=== PATIENT | male | born 1965 | race Hispanic/Latino ===

== ENCOUNTER 2024-10-28 20:37 | Emergency (ER) | payer OTHER ==
[~2024-10-28] VITALS: Ht 167.6 cm; Wt 83.0 kg
[2024-10-28 21:30] VITALS: PULSE 90; RESP 18; TEMP 97.9
[2024-10-28] MEDS ORDERED: POLYMYXIN B-TMP10 ML OP (21:51)
[2024-10-28] MEDS ORDERED: CEPHALEXIN500 MG PO (21:52)
[2024-10-28 22:07] VITALS: BP 144/85; PULSE 90; RESP 18; TEMP 97.9; O2SAT 96
== END 2024-10-28 22:07 | disposition home or self-care (01) ==
LOC: FSED 21:45
DX: H00.015 Hordeolum externum left lower eyelid (principal); I10 Essential (primary) hypertension; E11.9 Type 2 diabetes mellitus without complications; I48.91 Unspecified atrial fibrillation
CPT/HCPCS: 99282